=== PATIENT | female | born 1985 | race Caucasian/White ===

== ENCOUNTER 2016-12-27 13:50 | Emergency (ER) | payer MEDICAID ==
[~2016-12-27] VITALS: Ht 157.5 cm; Wt 72.6 kg
[2016-12-27 13:58] VITALS: BP 136/84
[2016-12-27] MEDS ORDERED: KETOROLAC 30 MG/1 ML ONE (14:16)
[2016-12-27] MEDS ORDERED: KETOROLAC 30 MG/1 ML IM ONE (14:30)
== END 2016-12-27 14:55 | disposition home or self-care (01) ==
LOC: ED 14:30
DX: S70.01XA Contusion of right hip, initial encounter (principal); F17.210 Nicotine dependence, cigarettes, uncomplicated; W22.8XXA Striking against or struck by other objects, initial encounter; Y93.89 Activity, other specified; Y92.009 Unspecified place in unspecified non-institutional (private) residence as the place of occurrence of the external cause; Y99.9 Unspecified external cause status
CPT/HCPCS: 73502; 96372; 99284; J1885

== ENCOUNTER 2017-12-18 13:54 | Emergency (ER) | payer MEDICAID ==
[~2017-12-18] VITALS: Ht 157.5 cm; Wt 78.0 kg
[2017-12-18 13:58] VITALS: BP 114/73
== END 2017-12-18 15:38 | disposition home or self-care (01) ==
LOC: ED 15:36
DX: S00.83XA Contusion of other part of head, initial encounter (principal); F17.200 Nicotine dependence, unspecified, uncomplicated; Y04.8XXA Assault by other bodily force, initial encounter; Y93.89 Activity, other specified; Y99.8 Other external cause status; Y92.009 Unspecified place in unspecified non-institutional (private) residence as the place of occurrence of the external cause
CPT/HCPCS: 70486; 99284

== ENCOUNTER 2018-01-18 11:58 | Emergency (ER) | payer MEDICAID ==
[~2018-01-18] VITALS: Ht 157.5 cm; Wt 78.5 kg
[2018-01-18 12:18] VITALS: BP 113/63
== END 2018-01-18 13:08 ==
LOC: ED 12:57
DX: B85.0 Pediculosis due to Pediculus humanus capitis (principal); F17.200 Nicotine dependence, unspecified, uncomplicated
CPT/HCPCS: 99283

== ENCOUNTER 2018-09-23 18:10 | Emergency (ER) | payer MEDICAID ==
[~2018-09-23] VITALS: Ht 157.5 cm; Wt 82.0 kg
[2018-09-23 18:37] VITALS: BP 146/91
[2018-09-23] MEDS ORDERED: FLUORESCEIN/BENOXINATE 5 ML DROPS OP ONE (19:00)
--- NOTE | 2018-09-23 19:29 | NUR ---
NIL X 1 WHEN CALLED FOR ROOM.
== END 2018-09-23 20:16 | disposition home or self-care (01) ==
LOC: ED 20:10
DX: H10.023 Other mucopurulent conjunctivitis, bilateral (principal)
CPT/HCPCS: 99283